=== PATIENT | male | born 1975 | race Caucasian/White ===

== ENCOUNTER 2021-03-15 05:13 | Emergency (ER) | payer MEDICAID ==
[~2021-03-15] VITALS: Ht 177.8 cm; Wt 91.7 kg
[2021-03-15] MEDS ORDERED: ONDANSETRON ODT 4 MG ONE (05:37)
[2021-03-15] MEDS ORDERED: ACETAMINOPHEN 500 MG TABLET ONE (05:37)
[2021-03-15 05:56] VITALS: BP 136/95
[2021-03-15] MEDS ORDERED: ACETAMINOPHEN 500 MG TABLET PO ONE (06:00)
[2021-03-15] MEDS ORDERED: ONDANSETRON ODT 4 MG PO ONE (06:00)
[2021-03-15] MEDS ORDERED: BICILLIN-LA 1,200,000 UNITS/2 ML IM ONE (06:00)
== END 2021-03-15 06:28 | disposition home or self-care (01) ==
LOC: ED 06:16
DX: K04.6 Periapical abscess with sinus (principal)
CPT/HCPCS: 96372; 99283; J0561; Q0162